=== PATIENT | female | born 1955 | race African-American/Black ===

== ENCOUNTER 2020-02-02 17:31 | Emergency (ER) | payer MEDICAID, MEDICARE ==
[~2020-02-02] VITALS: Ht 157.5 cm; Wt 78.1 kg
[2020-02-02] MEDS ORDERED: IV NORMAL SALINE 1000ML BAG 1,000 ML IV SCH (19:00)
[2020-02-02] MEDS ORDERED: ONDANSETRON PF 4 MG/2 ML VIAL. IVP ONE (19:00)
--- NOTE | 2020-02-02 19:16 | PHYS DOC ---
Past Medical History Past Medical History: No Pertinent History Past Surgical History: No Surgical History Smoking Status: Former Smoker Alcohol Use: Sober Adult General Chief Complaint Chief Complaint: ABDOMINAL PAIN HPI HPI Patient is a 64 year old female who complains with complaint of upper abdominal pain that started a couple of days ago. Patient states that symptoms are very similar to when she has had pancreatitis in the past. She admits to nausea but has had no vomiting and no diarrhea. Patient rates pain as moderate and states pain is worsened if she tries to eat or drink. He states that nothing is impr oving her symptoms.[] Review of Systems Review of Systems Constitutional: Denies fever or chills [] Respiratory: Denies cough or shortness of breath [] Cardiovascular: No additional information not addressed in HPI [] GI: Complains of abdominal pain without vomiting or diarrhea [] Integument: Denies rash or skin lesions [] Neurologic: Denies headache, focal weakness or sensory changes [] All other systems were reviewed and found to be within normal limits, except as documented in this note. Current Medications Current Medications Current Medications Medications (Trade) Dose Ordered Sig/Mau Start Time Stop Time Status Last Admin Dose Admin Ceftriaxone Sodium (Rocephin) 1 gm 1X ONCE 02/02/20 21:30 02/02/20 21:31 DC Fentanyl Citrate (Fentanyl 2ml Vial) 25 mcg PRN Q15MIN PRN 02/02/20 19:00 02/02/20 23:00 02/02/20 19:33 25 MCG Ondansetron HCl (Zofran) 4 mg 1X ONCE 02/02/20 19:00 02/02/20 19:01 DC 02/02/20 19:33 4 MG Sodium Chloride 1,000 ml @ 1,000 mls/hr Q1H 02/02/20 19:00 02/02/20 19:59 DC 02/02/20 19:00 1,000 MLS/HR Allergies Allergies Allergies Coded Allergies Type Severity Reaction Last Updated Verified cortisone Allergy Intermediate HEADACHE, SWEATING 02/02/20 Yes epinephrine Allergy Intermediate CHEST TIGHTNESS 02/02/20 Yes morphine Allergy Intermediate CHEST TIGHTNESS 02/02/20 Yes tramadol Allergy Intermediate CHEST TIGHTNESS 02/02/20 Yes duloxetine Adverse Reaction Intermediate FELT GROGGY 02/02/20 Yes gabapentin Adverse Reaction Intermediate NAUSEA 02/02/20 Yes venlafaxine Adverse Reaction Intermediate NAUSEA 02/02/20 Yes Physical Exam Physical Exam Constitutional: Well developed, well nourished, no acute distress, non-toxic appearance. [] HENT: Normocephalic, atraumatic, bilateral external ears normal, oropharynx moist, no oral exudates, nose normal. [] Eyes: PERRLA, EOMI, conjunctiva normal, no discharge. [] Neck: Normal range of motion, no tenderness, supple, no stridor. [] Cardiovascular:Heart rate regular rhythm, no murmur [] Lungs & Thorax: Bilateral breath sounds clear to auscultation [] Abdomen: Bowel sounds normal, soft, with epigastric tenderness. [] Skin: Warm, dry, no erythema, no rash. [] Extremities: No tenderness, no cyanosis, no clubbing, ROM intact. [] Neurologic: Alert and oriented X 3, no focal deficits noted. [] Current Patient Data Vital Signs Vital Signs Date Time Temp Pulse Resp B/P (MAP) Pulse Ox O2 Delivery O2 Flow Rate FiO2 02/02/20 19:33 16 98 Room Air 02/02/20 18:05 98.6 76 139/76 (97) 98.6 Lab Values Laboratory Tests Test 02/02/20 19:23 02/02/20 20:37 White Blood Count 9.1 x10^3/uL (4.0-11.0) Red Blood Count 4.04 x10^6/uL (3.50-5.40) Hemoglobin 9.7 g/dL (12.0-15.5) L Hematocrit 30.9 % (36.0-47.0) L Mean Corpuscular Volume 77 fL (79-100) L Mean Corpuscular Hemoglobin 24 pg (25-35) L Mean Corpuscular Hemoglobin Concent 31 g/dL (31-37) Red Cell Distribution Width 19.9 % (11.5-14.5) H Platelet Count 259 x10^3/uL (140-400) Neutrophils (%) (Auto) 84 % (31-73) H Lymphocytes (%) (Auto) 11 % (24-48) L Monocytes (%) (Auto) 3 % (0-9) Eosinophils (%) (Auto) 1 % (0-3) Basophils (%) (Auto) 1 % (0-3) Neutrophils # (Auto) 7.7 x10^3/uL (1.8-7.7) Lymphocytes # (Auto) 1.0 x10^3/uL (1.0-4.8) Monocytes # (Auto) 0.3 x10^3/uL (0.0-1.1) Eosinophils # (Auto) 0.1 x10^3/uL (0.0-0.7) Basophils # (Auto) 0.1 x10^3/uL (0.0-0.2) Sodium Level 141 mmol/L (136-145) Potassium Level 4.1 mmol/L (3.5-5.1) Chloride Level 104 mmol/L (98-107) Carbon Dioxide Level 25 mmol/L (21-32) Anion Gap 12 (6-14) Blood Urea Nitrogen 17 mg/dL (7-20) Creatinine 1.5 mg/dL (0.6-1.0) H Estimated GFR (Cockcroft-Gault) 42.0 BUN/Creatinine Ratio 11 (6-20) Glucose Level 147 mg/dL (70-99) H Calcium Level 9.5 mg/dL (8.5-10.1) Total Bilirubin 0.3 mg/dL (0.2-1.0) Aspartate Amino Transferase (AST) 19 U/L (15-37) Alanine Aminotransferase (ALT) 22 U/L (14-59) Alkaline Phosphatase 69 U/L (46-116) Total Protein 7.7 g/dL (6.4-8.2) Albumin 4.2 g/dL (3.4-5.0) Albumin/Globulin Ratio 1.2 (1.0-1.7) Lipase 162 U/L (73-393) Urine Collection Type Unknown Urine Color Yellow Urine Clarity Cloudy Urine pH 5.5 (<5.0-8.0) Urine Specific [place] 1.020 (1.000-1.030) Urine Protein >=300 mg/dL (NEG-TRACE) Urine Glucose (UA) Negative mg/dL (NEG) Urine Ketones (Stick) Negative mg/dL (NEG) Urine Blood Negative (NEG) Urine Nitrite Positive (NEG) Urine Bilirubin Negative (NEG) Urine Urobilinogen Dipstick 1.0 mg/dL (0.2 mg/dL) Urine Leukocyte Esterase Small (NEG) Urine RBC 0 /HPF (0-2) Urine WBC 11-20 /HPF (0-4) Urine Squamous Epithelial Cells Mod /LPF Urine Bacteria Many /HPF (0-FEW) Urine Mucus Mod /LPF Laboratory Tests 02/02/20 19:23 Laboratory Tests 02/02/20 19:23 EKG EKG [] Radiology/Procedures Radiology/Procedures [] Impressions: PROCEDURE: CT ABDOMEN PELVIS WO CONTRAST Exam: CT of abdomen and pelvis without contrast INDICATION: Upper abdominal pain TECHNIQUE: Sequential axial images through the abdomen and pelvis obtained without IV contrast. Sagittal and coronal reformatted images were reconstructed from the axial data and reviewed. Comparisons: None FINDINGS: Heart size is normal. No pericardial effusion. Strandy opacities at the dependent portion lungs likely representing atelectasis. No pleural effusion. Evaluation of the solid organs is limited secondary to noncontrast technique. Liver, spleen, pancreas and adrenals are unremarkable. Gallstones are within the gallbladder which is otherwise unremarkable. No renal or ureteral calculi are identified. No perinephric inflammation or hydronephrosis. Bladder is decompressed not well evaluated. Uterus is nonenlarged. Pessary device noted within the vagina. No abnormal adnexal mass. Inflammatory changes surrounding a short segment of small bowel in the left upper quadrant. There is associated mild dilatation of small bowel loops. The large and small bowel are unremarkable. No free intra-abdominal air or fluid. No obstruction. Abdominal aorta has a normal course and caliber. No enlarged intra-abdominal lymph nodes are identified. No suspicious osseous lesions or acute fractures. IMPRESSION: 1. Inflammatory changes involving a short segment of small bowel in the left upper quadrant favored to represent enteritis. 2. Cholelithiasis Exposure: One or more of the following in the visualized dose reduction techniques were utilized for this examination: 1. Automated exposure control 2. Adjustment of the MA and/or KV according to patient size 3. Use of iterative of reconstructive technique Electronically signed by: Johnson Booker MD (02/02/2020 9:40 PM) [id number] Course & Med Decision Making Course & Med Decision Making Pertinent Labs and Imaging studies reviewed. (See chart for details) [] Dragon Disclaimer Dragon Disclaimer This electronic medical record was generated, in whole or in part, using a voice recognition dictation system. Departure Departure Impression: Primary Impression: UTI (urinary tract infection) Additional Impressions: Enteritis Cholelithiasis Disposition: 01 HOME, SELF-CARE Condition: STABLE Referrals: LORENZO SAHA MD (PCP) Patient Instructions: Cholelithiasis, Urinary Tract Infection Scripts Ondansetron (ONDANSETRON ODT) 4 Mg Tab.rapdis 1 TAB PO PRN Q6-8HRS PRN for NAUSEA, #15 TAB Prov: MANOLO GRIMM Jr. DO 02/02/20 Hydrocodone/Apap 5-325 (NORCO 5-325 TABLET) 1 Each Tablet 1-2 EACH PO PRN Q6HRS PRN for PAIN, #15 as needed for pain Prov: MANOLO GRIMM Jr. DO 02/02/20 Problem Qualifiers Primary Impression: UTI (urinary tract infection) Urinary tract infection type: site unspecified Hematuria presence: without hematuria Qualified Codes: N39.0 - Urinary tract infection, site not speci fied Additional Impressions: Cholelithiasis Cholelithiasis location: other site Biliary obstruction: without biliary obstruction Qualified Codes: K80.80 - Other cholelithiasis without obstruction MANOLO GRIMM Jr. DO Feb 02, 2020 19:16
[2020-02-02 19:30] LABS: BASO # 0.1 x10^3/uL (0.0-0.2); BASO % 1 % (0-3); EOS # 0.1 x10^3/uL (0.0-0.7); EOS % 1 % (0-3); HEMATOCRIT 30.9 % (36.0-47.0); HEMOGLOBIN 9.7 g/dL (12.0-15.5); LYMPH % 11 % (24-48); MEAN CORPUSCULAR HEMOGLOBIN 24 pg (25-35); MEAN CORPUSCULAR HGB CONC 31 g/dL (31-37); MEAN CORPUSCULAR VOLUME 77 fL (79-100); MONO # 0.3 x10^3/uL (0.0-1.1); MONO % 3 % (0-9); NEUT # 7.7 x10^3/uL (1.8-7.7); NEUT % 84 % (31-73); PLATELET COUNT 259 x10^3/uL (140-400); RED BLOOD COUNT 4.04 x10^6/uL (3.50-5.40); RED CELL DISTRIBUTION WIDTH 19.9 % (11.5-14.5); WHITE BLOOD COUNT 9.1 x10^3/uL (4.0-11.0)
[2020-02-02] MEDS: fentaNYL PF VIAL 100 MCG/2 ML VIAL IV PRN ×2 (19:33→22:14)
[2020-02-02 19:42] LABS: CALCIUM 9.5 mg/dL (8.5-10.1); CREATININE 1.5 mg/dL (0.6-1.0); POTASSIUM 4.1 mmol/L (3.5-5.1)
[2020-02-02 19:48] LABS: ALBUMIN 4.2 g/dL (3.4-5.0); ALBUMIN/GLOBULIN RATIO 1.2 (1.0-1.7); TOTAL BILIRUBIN 0.3 mg/dL (0.2-1.0); TOTAL PROTEIN 7.7 g/dL (6.4-8.2)
[2020-02-02 20:42] LABS: BILIRUBIN,URINE NEGATIVE (NEG); CLARITY,URINE CLOUDY; COLOR,URINE YELLOW; NITRITE,URINE POSITIVE (NEG); PH,URINE 5.5 (<5.0-8.0); PROTEIN,URINE >=300 mg/dL (NEG-TRACE)
[2020-02-02 20:47] LABS: BACTERIA,URINE MANY /HPF (0-FEW); RBC,URINE 0 /HPF (0-2); SQUAMOUS EPITHELIAL CELL,UR MOD /LPF
[2020-02-02] MEDS ORDERED: cefTRIAXone IV Push 1 GM VIAL. IVP ONE (21:30)
--- NOTE | 2020-02-02 21:43 | RAD ---
Exam: CT of abdomen and pelvis without contrast INDICATION: Upper abdominal pain TECHNIQUE: Sequential axial images through the abdomen and pelvis obtained without IV contrast. Sagittal and coronal reformatted images were reconstructed from the axial data and reviewed. Comparisons: None FINDINGS: Heart size is normal. No pericardial effusion. Strandy opacities at the dependent portion lungs likely representing atelectasis. No pleural effusion. Evaluation of the solid organs is limited secondary to noncontrast technique. Liver, spleen, pancreas and adrenals are unremarkable. Gallstones are within the gallbladder which is otherwise unremarkable. No renal or ureteral calculi are identified. No perinephric inflammation or hydronephrosis. Bladder is decompressed not well evaluated. Uterus is nonenlarged. Pessary device noted within the vagina. No abnormal adnexal mass. Inflammatory changes surrounding a short segment of small bowel in the left upper quadrant. There is associated mild dilatation of small bowel loops. The large and small bowel are unremarkable. No free intra-abdominal air or fluid. No obstruction. Abdominal aorta has a normal course and caliber. No enlarged intra-abdominal lymph nodes are identified. No suspicious osseous lesions or acute fractures. IMPRESSION: 1. Inflammatory changes involving a short segment of small bowel in the left upper quadrant favored to represent enteritis. 2. Cholelithiasis Exposure: One or more of the following in the visualized dose reduction techniques were utilized for this examination: 1. Automated exposure control 2. Adjustment of the MA and/or KV according to patient size 3. Use of iterative of reconstructive technique Electronically signed by: Johnson Booker MD (02/02/2020 9:40 PM) [id number]
[2020-02-02] MEDS ORDERED: HYDR-3164 PO (21:55)
[2020-02-02] MEDS ORDERED: ONDA4TAB12 PO (21:55)
[2020-02-02 22:00] VITALS: BP 146/90
[2020-02-05] MEDS ORDERED: ALLO100T PO (07:57)
[2020-02-05] MEDS ORDERED: LOSA-73 PO (08:05)
[2020-02-05] MEDS ORDERED: CHOL200078 PO (08:05)
[2020-02-05] MEDS ORDERED: OMEP40CA45 PO (08:05)
[2020-02-05] MEDS ORDERED: CRESTOR40 MG PO (08:05)
[2020-02-05] MEDS ORDERED: NITR0.4T24 SL (08:05)
[2020-02-05] MEDS ORDERED: ASPI325T8 PO (08:05)
[2020-02-05] MEDS ORDERED: MULT-658 PO (08:05)
[2020-02-05] MEDS ORDERED: DICL100G18 TP (08:05)
[2020-02-05] MEDS ORDERED: METF500T16 PO (08:05)
[2020-02-05] MEDS ORDERED: PREG50CA PO (08:05)
[2020-02-05] MEDS ORDERED: ISOS60TA2 PO (08:05)
[2020-02-05] MEDS ORDERED: LISI-334 PO (08:05)
[2020-02-05] MEDS ORDERED: OXYC1TAB22 PO (08:05)
[2020-02-07] MEDS ORDERED: BUSP5TAB PO (10:21)
== END 2020-02-02 22:29 | disposition home or self-care (01) ==
LOC: ER 17:31
DX: N39.0 Urinary tract infection, site not specified (principal); K80.80 Other cholelithiasis without obstruction; K86.1 Other chronic pancreatitis; K52.9 Noninfective gastroenteritis and colitis, unspecified; Z88.6 Allergy status to analgesic agent; Z88.5 Allergy status to narcotic agent; Z88.8 Allergy status to other drugs, medicaments and biological substances; Z88.2 Allergy status to sulfonamides; Z87.891 Personal history of nicotine dependence
CPT/HCPCS: 36415; 74176; 80053; 81001; 83690; 85025; 87086; 96374; 96375; 99285; J0696; J2405; J3010; J7030